=== PATIENT | female | born 1985 | race Caucasian/White ===

== ENCOUNTER 2020-02-12 10:56 | Outpatient (REF) | payer MEDICAID, SELFPAY ==
[2020-02-12 11:15] LABS: COVID-19 Test Negative (Negative)
== END 2020-02-12 10:57 | disposition home or self-care (01) ==
LOC: HO.LAB 10:56
PROVIDERS: Visit Provider Internal Medicine
DX: Z20.828 Contact with and (suspected) exposure to other viral communicable diseases (principal)
CPT/HCPCS: 87635; C9803

== ENCOUNTER 2020-04-13 12:07 | Outpatient (REF) | payer OTHER, SELFPAY ==
[2020-04-13 13:15] LABS: COVID-19 Test Negative (Negative)
== END 2020-04-13 12:08 | disposition home or self-care (01) ==
LOC: HO.EMPCOV 12:07
PROVIDERS: Visit Provider Internal Medicine
DX: Z20.828 Contact with and (suspected) exposure to other viral communicable diseases (principal)
CPT/HCPCS: 36415; 87635; C9803

== ENCOUNTER 2020-05-27 06:26 | Outpatient (REF) | payer OTHER, SELFPAY ==
[2020-05-27 06:51] LABS: COVID-19 Test Negative (Negative); IDNOW Serial# 9DD0AD1C
== END 2020-05-27 06:27 | disposition home or self-care (01) ==
LOC: HO.EMPCOV 06:26
PROVIDERS: Visit Provider Internal Medicine
DX: Z20.822 Contact with and (suspected) exposure to COVID-19 (principal)
CPT/HCPCS: 36415; 87635

== ENCOUNTER → 2022-01-25 09:12 | Outpatient (RCR) | payer OTHER, SELFPAY ==
[2020-02-17 07:26] LABS: COVID-19 Test Negative (Negative)
[2020-02-26 10:11] LABS: COVID-19 Test Negative (Negative)
[2020-03-03 14:55] LABS: COVID-19 Test Negative (Negative); IDNOW Serial# 55D5AD1C
[2020-03-10 07:38] LABS: COVID-19 Test Negative (Negative)
[2020-03-22 10:07] LABS: SARS-COV-2 PCR UMBRL Not Detected
[2020-03-31 09:03] LABS: SARS-COV-2 PCR UMBRL Not Detected
[2020-04-01 12:33] LABS: SARS-COV-2 PCR UMBRL Not Detected
[2020-04-08 10:29] LABS: SARS-COV-2 PCR UMBRL Not Detected
[2020-04-23 15:29] LABS: SARS-COV-2 PCR UMBRL NEGATIVE
== END | disposition home or self-care (01) ==
LOC: HO.EMPCOV 02-17 07:02
PROVIDERS: Visit Provider Internal Medicine
DX: Z20.828 Contact with and (suspected) exposure to other viral communicable diseases (principal)
CPT/HCPCS: 36415; 87635; C9803; U0003